=== PATIENT | female | born 1980 | race American Indian/Alaskan Native ===

== ENCOUNTER 2016-06-16 16:26 | Emergency (ER) | payer MEDICAID ==
[~2016-06-16] VITALS: Ht 160 cm; Wt 69.4 kg
[~2016-06-16 16:26] MED LIST: CEPHALEXIN500 MG ORAL; IBUPROFEN200 M2 ORAL; PERI-COLACE1 EA ORAL; TRAMADOL HCL50 MG ORAL
[2016-06-16] MEDS ORDERED: NKM (16:36)
[2016-06-16 16:38] VITALS: BP 118/76
[2016-06-16] MEDS ORDERED: Ketorolac 30mg Inj IM ONE (17:00)
[2016-06-16] MEDS ORDERED: Methocarbamol 750mg tab ORAL ONE (17:00)
[2016-06-16] MEDS ORDERED: ROBAXIN-750750 MG PO (17:27)
[2016-06-16] MEDS ORDERED: IBUPROFEN600 MG ORAL (17:27)
[2016-06-16 17:35] VITALS: BP 118/76
--- NOTE | 2016-06-16 21:07 | Emergency Room Report ---
History of Present Illness General Chief Complaint: Lower Back Pain or Injury Source: Patient Present Illness Allergies: Coded Allergies: No Known Allergies (Unverified , 12/21/13) Patient History Last Menstrual Period: 06/06/16 Now: No Nursing Documentation-[facility] Past Medical History: No Stated History Hx Cardiac Problems: No Hx Cancer: No Hx Gastrointestinal Problems: No Hx Neurological Problems: No Physical Exam Vital Signs Date Time Temp Pulse Resp B/P Pulse Ox O2 Delivery O2 Flow Rate FiO2 06/16/16 16:29 98.2 83 16 118/76 97 Room Air Medical Decision Making PA Attestation Dr. Oviedo is my supervising physician. Patient management was discussed with my supervising physician Diagnostic Impression: Primary Impression: Muscle strain ER Course Ddx considered include but not limited to lumbar strain, degenerative disease, epidural abscess, cauda equina, chronic pain, narcotic dependency. The patient is given Toradol and Robaxin for pain and is feeling better. She is given a limited time off of work and will rest and use a heat pack at home. She is given a prescription for Motrin and Robaxin. ER precautions are given she will follow up with PMD Last Vital Signs Date Time Temp Pulse Resp B/P Pulse Ox O2 Delivery O2 Flow Rate FiO2 06/16/16 17:35 98.2 83 16 118/76 97 Room Air Disposition: HOME, SELF-CARE Condition: Improved Scripts Methocarbamol* (ROBAXIN-750*) 750 Mg Tablet 750 MG PO TID, #21 TAB 0 Refills Prov: TERDIANNAANEDITH P.A. 06/16/16 Ibuprofen* (MOTRIN*) 600 Mg Tablet 600 MG ORAL Q8H Y for For Pain, #30 TAB 0 Refills Prov: TERDIANNAANEDITH P.A. 06/16/16 Patient Instructions: Back Pain, Adult Additional Instructions: I discussed my findings with the patient. All questions and concerns have been answered. Treatment and medication compliance have been addressed. I advised the patient that they need to follow up with PMD in 3-5 days. Return to ED if pain remains or worsens, numbness or tingling occurs, new rash is noticed, fever is noticed, or if needed for any reason. Patient verbalized understanding of discharge instructions. EDITH HAHN Jun 16, 2016 21:07
== END 2016-06-16 17:44 | disposition home or self-care (01) ==
LOC: EMR 17:24
DX: M54.5 Low back pain (principal); S39.012A Strain of muscle, fascia and tendon of lower back, initial encounter; X58.XXXA Exposure to other specified factors, initial encounter; Y92.89 Other specified places as the place of occurrence of the external cause
CPT/HCPCS: 96372; 99284; J1885